=== PATIENT | male | born 1950 | race Caucasian/White ===

== ENCOUNTER 2023-08-04 13:28 | Emergency (ER) | payer MEDICARE, BC | END 2023-08-04 17:12 | disposition home or self-care (01) | LOC: JD.ED 13:28 | DX: M79.661 Pain in right lower leg (principal); I10 Essential (primary) hypertension; Z86.718 Personal history of other venous thrombosis and embolism | CPT/HCPCS: 93971-26-RT; 93971-RT; 99282; 99283 ==